=== PATIENT | female | born 1980 | race American Indian/Alaskan Native ===

== ENCOUNTER 2017-11-17 08:58 | Emergency (ER) | payer BC ==
[2017-11-17] MEDS ORDERED: SODIUM CHLORIDE 0.9% 1,000 ML IV STA (09:17)
[2017-11-17] MEDS ORDERED: ACETAMINOPHEN TAB 500 MG TAB PO STA (09:34)
--- NOTE | 2017-11-17 09:37 | ED ---
Syncope HPI - General Chief Complaint: Syncope Stated Complaint: Syncope, Back Pain Time Seen by Provider: 11/17/17 09:14 Source: patient, RN notes reviewed, old records reviewed Mode of arrival: ambulatory Limitations: no limitations - History of Present Illness Initial Comments: This patient's a 37-year-old female with chief complaint of syncopal episode today. Patient reports that she woke up this morning and woke up with lower back pain. Worse with position. Patient states she got up to use the bathroom , she started to feel dizzy and lightheaded at that time. She is the bathroom return to her kitchen. Patient states that she was making her coffee she fell to the ground and had a syncopal episode with loss of consciousness for a few minutes. She woke up on the ground. At that time she went to the shower to get ready and came here. Patient states that she continues to have some lower back pain, worse with position. She is a smoker. She denies any chest pain or shortness of breath. She does have history of migraines as well as her migraines been more frequent over the past 2 weeks. - Related Data Home Medications Medication Instructions Recorded Confirmed Ibuprofen [Motrin] 600 mg PO TID PRN 11/17/17 11/17/17 Nicotine 14Mg/24Hr Patch [Habitrol 1 patch TRANSDERM DAILY 11/17/17 11/17/17 14Mg/24Hr Patch] SUMAtriptan SUCCINATE [Imitrex] 100 mg PO DAILY PRN 11/17/17 11/17/17 Previous Rx's Medication Instructions Recorded Cyclobenzaprine [Flexeril] 10 mg PO TID #12 tab 11/17/17 Allergies Allergy/AdvReac Type Severity Reaction Status Date / Time No Known Allergies Allergy Verified 11/17/17 10:24 Review of Systems ROS Statement: Those systems with pertinent positive or pertinent negative responses have been documented in the HPI. ROS Other: All systems not noted in ROS Statement are negative. Past Medical History Past Medical History: No Reported History History of Any Multi-Drug Resistant Organisms: None Reported Past Surgical History: No Surgical Hx Reported Past Psychological History: No Psychological Hx Reported Smoking Status: Current every day smoker Past Alcohol Use History: None Reported Past Drug Use History: None Reported General Exam - General Exam Comments Initial Comments: This is a 37-year-old female. Alert and oriented. No significant distress. Limitations: no limitations General appearance: alert, in no apparent distress Head exam: Present: atraumatic, normocephalic, normal inspection Eye exam: Present: normal appearance, PERRL, EOMI. Absent: scleral icterus, conjunctival injection, periorbital swelling ENT exam: Present: normal exam, mucous membranes moist Neck exam: Present: normal inspection. Absent: tenderness, meningismus, lymphadenopathy Respiratory exam: Present: normal lung sounds bilaterally. Absent: respiratory distress, wheezes, rales, rhonchi, stridor Cardiovascular Exam: Present: regular rate, normal rhythm, normal heart sounds. Absent: systolic murmur, diastolic murmur, rubs, gallop, clicks GI/Abdominal exam: Present: soft, normal bowel sounds. Absent: distended, tenderness, guarding, rebound, rigid Extremities exam: Present: normal inspection Back exam: Present: normal inspection Neurological exam: Present: alert, oriented X3, CN II-XII intact Psychiatric exam: Present: normal affect, normal mood Skin exam: Present: warm, dry, intact, normal color. Absent: rash Course Vital Signs 11/17/17 11/17/17 09:05 11:38 Temperature 98.4 F Pulse Rate 83 54 L Respiratory 16 18 Rate Blood Pressure 120/76 113/68 O2 Sat by Pulse 99 98 Oximetry - Reevaluation(s) Reevaluation #1: 11/17/17 11:34 is reevaluated this time, she admitted to the bathroom. No evidence of gait disturbances. Patient has no abdominal pain or tenderness. Normal dorsalis pedis pulse. Patient informed of all of her results at this time. I will give her Patient medications for the lower back pain and Norflex and Toradol. Medical Decision Making - Medical Decision Making 37-year-old female presents by Department after single episode today. She reports she woke up today complaining of lower back pain after she woke up. Worse with movement. She has no abdominal tenderness or any pain at this time. She is no chest pain or shortness of breath. Patient reports she wanted to make her coffee G passed out was on the floor. At this time CT brain is a for acute process. Chest x-ray and lumbar spine x-ray reviewed and 8 for any abnormality's. Patient's lab work shows no changes on her EKG and lab work was all within normal limits. Patient given fluids, Toradol and Norflex for back pain. Patient is feeling much better at this time. I discussed etiologies for similar episodes, he also discussed the Patient could possibly do a CT abdomen and pelvis checking for aorta. However she has no abdominal tenderness, normal dorsalis pedis pulse bilaterally. Patient is agreeing to refuse at this time. I did discuss close follow-up with primary care physician. I discussed that she return if there is any worsening signs or symptoms occur. Patient discharged at this time with Flexeril to take ibuprofen for her back pain. Patient agrees to treatment plan will comply. Return parameters were discussed. - Lab Data Result diagrams: 11/17/17 09:24 11/17/17 09:24 Lab Results 11/17/17 11/17/17 11/17/17 Range/Units 09:24 09:24 09:24 WBC 9.7 (3.8-10.6) k/uL RBC 5.09 (3.80-5.40) m/uL Hgb 14.9 (11.4-16.0) gm/dL Hct 44.2 (34.0-46.0) % MCV 87.0 (80.0-100.0) fL MCH 29.3 (25.0-35.0) pg MCHC 33.7 (31.0-37.0) g/dL RDW 12.8 (11.5-15.5) % Plt Count 283 (150-450) k/uL Neutrophils % 76 % Lymphocytes % 18 % Monocytes % 4 % Eosinophils % 1 % Basophils % 1 % Neutrophils # 7.3 (1.3-7.7) k/uL Lymphocytes # 1.8 (1.0-4.8) k/uL Monocytes # 0.4 (0-1.0) k/uL Eosinophils # 0.1 (0-0.7) k/uL Basophils # 0.1 (0-0.2) k/uL PT (9.0-12.0) sec INR (<1.2) APTT (22.0-30.0) sec Sodium 140 (137-145) mmol/L Potassium 4.2 (3.5-5.1) mmol/L Chloride 109 H (98-107) mmol/L Carbon Dioxide 23 (22-30) mmol/L Anion Gap 8 mmol/L BUN 8 (7-17) mg/dL Creatinine 0.64 (0.52-1.04) mg/dL Est GFR (CKD-EPI)AfAm >90 (>60 ml/min/1.73 sqM) Est GFR (CKD-EPI)NonAf >90 (>60 ml/min/1.73 sqM) Glucose 86 (74-99) mg/dL Calcium 9.6 (8.4-10.2) mg/dL Magnesium 2.0 (1.6-2.3) mg/dL Total Bilirubin 0.4 (0.2-1.3) mg/dL AST 19 (14-36) U/L ALT 30 (9-52) U/L Alkaline Phosphatase 86 (38-126) U/L Total Creatine Kinase 61 (30-135) U/L CK-MB (CK-2) 0.4 (0.0-2.4) ng/mL CK-MB (CK-2) Rel Index 0.7 Troponin I <0.012 (0.000-0.034) ng/mL Total Protein 7.3 (6.3-8.2) g/dL Albumin 4.3 (3.5-5.0) g/dL Urine Color Urine Appearance (Clear) Urine pH (5.0-8.0) Ur Specific Kiefer (1.001-1.035) Urine Protein (Negative) Urine Glucose (UA) (Negative) Urine Ketones (Negative) Urine Blood (Negative) Urine Nitrite (Negative) Urine Bilirubin (Negative) Urine Urobilinogen (<2.0) mg/dL Ur Leukocyte Esterase (Negative) Urine HCG, Qual (Not Detectd) 11/17/17 11/17/17 11/17/17 Range/Units 09:24 09:24 09:24 WBC (3.8-10.6) k/uL RBC (3.80-5.40) m/uL Hgb (11.4-16.0) gm/dL Hct (34.0-46.0) % MCV (80.0-100.0) fL MCH (25.0-35.0) pg MCHC (31.0-37.0) g/dL RDW (11.5-15.5) % Plt Count (150-450) k/uL Neutrophils % % Lymphocytes % % Monocytes % % Eosinophils % % Basophils % % Neutrophils # (1.3-7.7) k/uL Lymphocytes # (1.0-4.8) k/uL Monocytes # (0-1.0) k/uL Eosinophils # (0-0.7) k/uL Basophils # (0-0.2) k/uL PT 9.7 (9.0-12.0) sec INR 1.0 (<1.2) APTT 24.5 (22.0-30.0) sec Sodium (137-145) mmol/L Potassium (3.5-5.1) mmol/L Chloride (98-107) mmol/L Carbon Dioxide (22-30) mmol/L Anion Gap mmol/L BUN (7-17) mg/dL Creatinine (0.52-1.04) mg/dL Est GFR (CKD-EPI)AfAm (>60 ml/min/1.73 sqM) Est GFR (CKD-EPI)NonAf (>60 ml/min/1.73 sqM) Glucose (74-99) mg/dL Calcium (8.4-10.2) mg/dL Magnesium (1.6-2.3) mg/dL Total Bilirubin (0.2-1.3) mg/dL AST (14-36) U/L ALT (9-52) U/L Alkaline Phosphatase (38-126) U/L Total Creatine Kinase (30-135) U/L CK-MB (CK-2) (0.0-2.4) ng/mL CK-MB (CK-2) Rel Index Troponin I (0.000-0.034) ng/mL Total Protein (6.3-8.2) g/dL Albumin (3.5-5.0) g/dL Urine Color Colorless Urine Appearance Clear (Clear) Urine pH 7.5 (5.0-8.0) Ur Specific Kiefer 1.001 (1.001-1.035) Urine Protein Negative (Negative) Urine Glucose (UA) Negative (Negative) Urine Ketones Negative (Negative) Urine Blood Negative (Negative) Urine Nitrite Negative (Negative) Urine Bilirubin Negative (Negative) Urine Urobilinogen <2.0 (<2.0) mg/dL Ur Leukocyte Esterase Negative (Negative) Urine HCG, Qual Not Detected (Not Detectd) 11/17/17 10:34 EKG performed at 9:19 AM. Normal sinus rhythm. Nonspecific T wave around. Abnormal EKG noted. - Radiology Data Radiology results: report reviewed Lumbar spine shows no fracture dislocation and lumbar spine. CT brain is negative for any acute process. Chest x-rays negative for any acute cardiopulmonary process. Disposition Clinical Impression: Lumbar back pain, Syncope Disposition: HOME SELF-CARE Condition: Good Instructions: Syncope (ED) Additional Instructions: Patient is to rest, remain hydrated. Follow-up with primary care physician tomorrow. Return to the emergency department if any alarming signs or symptoms occur. Prescriptions: Cyclobenzaprine [Flexeril] 10 mg PO TID #12 tab Is patient prescribed a controlled substance at d/c from ED?: No Referrals: Siddhartha Armstrong DO [Primary Care Provider] - 1-2 days Time of Disposition: 12:20
[2017-11-17 09:42] LABS: Basophils # (A) 0.1 k/uL (0-0.2); Basophils % (A) 1 %; Eosinophils # (A) 0.1 k/uL (0-0.7); Eosinophils % (A) 1 %; HCT 44.2 % (34.0-46.0); HGB 14.9 gm/dL (11.4-16.0); Lymphocytes # (A) 1.8 k/uL (1.0-4.8); Lymphocytes % (A) 18 %; MCH 29.3 pg (25.0-35.0); MCHC 33.7 g/dL (31.0-37.0); Monocytes # (A) 0.4 k/uL (0-1.0); Monocytes % (A) 4 %; Neutrophils # (A) 7.3 k/uL (1.3-7.7); Neutrophils % (A) 76 %; Platelet Count 283 k/uL (150-450); RBC 5.09 m/uL (3.80-5.40); RDW 12.8 % (11.5-15.5); WBC 9.7 k/uL (3.8-10.6)
[2017-11-17 09:47] LABS: Appearance,Urine Clear (Clear); Bilirubin,Urine Negative (Negative); Blood,Urine Negative (Negative); Color,Urine Colorless; Glucose,Urine (UA) Negative (Negative); Ketones,Urine Negative (Negative); Leukocyte Esterase,Urine Negative (Negative); Nitrite,Urine Negative (Negative); PH, Urine 7.5 (5.0-8.0); Protein,Urine Negative (Negative); Specific Gravity,Urine 1.001 (1.001-1.035); Urobilinogen,Urine <2.0 mg/dL (<2.0)
[2017-11-17 09:52] LABS: Partial Thromboplastin Time 24.5 sec (22.0-30.0); Prothrombin Time 9.7 sec (9.0-12.0)
[2017-11-17 09:54] LABS: ALT 30 U/L (9-52); AST 19 U/L (14-36); Albumin 4.3 g/dL (3.5-5.0); Alkaline Phosphatase 86 U/L (38-126); Anion Gap 8 mmol/L; Blood Urea Nitrogen 8 mg/dL (7-17); Calcium 9.6 mg/dL (8.4-10.2); Carbon Dioxide 23 mmol/L (22-30); Chloride 109 mmol/L (98-107); Glucose 86 mg/dL (74-99); Potassium 4.2 mmol/L (3.5-5.1); Sodium 140 mmol/L (137-145); Total Bilirubin 0.4 mg/dL (0.2-1.3); Total Protein 7.3 g/dL (6.3-8.2)
--- NOTE | 2017-11-17 10:16 | CT ---
EXAMINATION TYPE: CT brain wo con DATE OF EXAM: 11/17/2017 COMPARISON: November 29, 2014 HISTORY: Syncope, back pain CT DLP: 1017.[address] of the brain was performed. The ventricles, basal cisterns and sulci overlying the cerebral convexities demonstrate a normal appe arance. There is no evidence for intracranial hemorrhage or sulcal effacement. No mass effects are seen. Osseous calvarium is intact. If symptoms persist consider MRI as clinically warranted. IMPRESSION: 1. No acute intracranial process is seen at this time.
--- NOTE | 2017-11-17 10:20 | XR ---
EXAMINATION TYPE: XR chest 2V DATE OF EXAM: 11/17/2017 COMPARISON: NONE HISTORY: Chest pain TECHNIQUE: Frontal and lateral views of the chest are obtained. FINDINGS: There is no focal air space opacity. No evidence for pneumothorax. No pleural effusion. The cardiac silhouette size is within normal limits. The osseous structures are grossly intact. IMPRESSION: 1. No acute cardiopulmonary process.
[2017-11-17 10:22] LABS: Creatine Kinase 61 U/L (30-135)
--- NOTE | 2017-11-17 10:22 | XR ---
EXAMINATION TYPE: XR lumbar spine 2 or 3V DATE OF EXAM: 11/17/2017 CLINICAL HISTORY: pain TECHNIQUE: Three views of the lumbar spine are submitted. COMPARISON: None. FINDINGS: There are 5 lumbar type vertebral bodies identified. The lumbar spine shows satisfactory alignment w ithout evidence of acute fracture or dislocation. Vertebral body heights are within normal limits. Disc spaces are within normal limits. The overlying soft tissue appears unremarkable. IMPRESSION: No acute fracture or dislocation is seen in the lumbar spine. ICD 10 NO FRACTURE, INITIAL EVALUATION
[2017-11-17 10:35] LABS: Creatine Kinase MB 0.4 ng/mL (0.0-2.4); Troponin I <0.012 ng/mL (0.000-0.034)
[2017-11-17] MEDS ORDERED: KETOROLAC 30 MG/ML 1 ML VIAL IVP STA (11:20)
[2017-11-17] MEDS ORDERED: ORPHENADRINE 30 MG/ML 2 ML VIAL IVP STA (11:20)
[2017-11-17 13:00] VITALS: BP 128/74; PULSE 79; RESP 16; TEMP 98.7
== END 2017-11-17 12:59 | disposition home or self-care (01) ==
LOC: EC 08:58
DX: M54.5 Low back pain (principal); R55 Syncope and collapse; F17.200 Nicotine dependence, unspecified, uncomplicated; Z79.899 Other long term (current) drug therapy; Z53.29 Procedure and treatment not carried out because of patient's decision for other reasons
CPT/HCPCS: 36415; 93005; 80053; 82550; 82553; 83735; 84484; 85025; 85610; 85730; 81003; 81025; 72100; 71046; 70450; 99285; 96374; 96375; 96361 ×4; J2360; J1885

== ENCOUNTER → 2017-11-24 | Outpatient (CLI) | payer BC ==
[2017-11-24 15:16] VITALS: BP 109/58; PULSE 84; BMI 29.7
--- NOTE | 2017-11-24 15:36 | P.GSHP ---
History of Present Illness H&P Date: 11/24/17 The patient is a 37-year-old who presents for breast examination. She does not feel any masses lumps or nodules in her breast. She is just concerned that she may not be doing breast examination appropriately and wishes to have an examination performed. She did have a mammogram in 2016 which was felt to be benign and repeat mammogram at the age of 38 was recommended at that time. The patient states that just before she starts her periods that time she will have discomfort in her breast. The patient drinks approximately one to 2 cups of coffee per day which is dramatically improved from 8 over a pot of coffee a day. Additionally she does not eat much chocolate. She smokes 1-2 cigarettes per day. 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 uterine ablation Past Medical History: 1. fainting episode last week, uncertain as to why Social History: smoke: 1-2 cigarettes/day alcohol: none drugs: none - Constitutional Constitutional: Reports sweats - EENT Eyes: denies blurred vision, denies pain Ears: deny: decreased hearing, tinnitus Ears, nose, mouth and throat: Reports headache, Denies sore throat - Breasts Breasts: bilateral: as per HPI - Cardiovascular Cardiovascular: Denies chest pain, Denies shortness of breath - Respiratory Comment: smoker Respiratory: Denies cough, Denies 7 - Gastrointestinal Gastrointestinal: Denies abdominal pain, Denies diarrhea, Denies nausea, Denies vomiting - Genitourinary (Female) Genitourinary: Reports abnormal vaginal bleeding - Musculoskeletal Musculoskeletal: Denies myalgias - Integumentary Integumentary: Denies pruritus, Denies rash - Neurological Neurological: Denies numbness, Denies weakness - Psychiatric Psychiatric: Denies anxiety, Denies depression - Endocrine Endocrine: Reports weight change, Denies fatigue - Hematologic/Lymphatic Comment: none - Allergic/Immunologic Comment: none Past Medical History Past Medical History: No Reported History History of Any Multi-Drug Resistant Organisms: None Reported Past Surgical History: No Surgical Hx Reported, Breast Surgery Additional Past Surgical History / Comment(s): breast biopsy Past Anesthesia/Blood Transfusion Reactions: No Reported Reaction Past Psychological History: No Psychological Hx Reported Smoking Status: Current every day smoker Past Alcohol Use History: None Reported Past Drug Use History: None Reported - Past Family History Mother Family Medical History: No Reported History Father Family Medical History: Cancer Additional Family Medical History / Comment(s): stomach cancer ( when Susannah was a child) Medications and Allergies Home Medications Medication Instructions Recorded Confirmed Type Cyclobenzaprine [Flexeril] 10 mg PO TID #12 tab 11/17/17 Rx Ibuprofen [Motrin] 600 mg PO TID PRN 11/17/17 11/17/17 History Nicotine 14Mg/24Hr Patch [Habitrol 1 patch TRANSDERM DAILY 11/17/17 11/17/17 History 14Mg/24Hr Patch] SUMAtriptan SUCCINATE [Imitrex] 100 mg PO DAILY PRN 11/17/17 11/17/17 History Allergies Allergy/AdvReac Type Severity Reaction Status Date / Time No Known Allergies Allergy Verified 11/17/17 10:24 Surgical - Exam Vital Signs Pulse BP Pulse Ox 84 109/58 98 11/24/17 15:11 11/24/17 15:11 11/24/17 15:11 - General well developed, well nourished, no distress - Eyes normal ocular movement, no icteric - ENT no hearing loss, no congestion - Neck no masses, trachea midline - Respiratory normal respiratory effort, clear to auscultation - Cardiovascular Rhythm: regular Heart Sounds: normal: S1, S2 - Abdomen Abdomen: soft, non tender, no guarding, no rigid, no rebound - Neurologic no disoriented, no combative - Musculoskeletal normal gait, normal posture - Psychiatric oriented to time, oriented to person, oriented to place, speech is normal, memory intact Breast examination: Right breast: Multiple positional exam no dominant masses or nodules of concern , fibrocystic changes Right axilla: No adenopathy of concern Left breast: Multi-positional exam no dominant masses or nodules of concern, fibrocystic changes Left axilla: No adenopathy of concern Assessment and Plan Assessment: Impression: 1. fibrocystic breast changes no dominant masses or nodules of concern 2. Irregular uterine bleeding following with preschool assistant principal 3. Migraines Plan: 1. Bilateral breast mammogram at the age of 38 which will be July 2019 819 2. Follow-up after bilateral mammogram 3. Continue to follow with Dr. Smith 4. Continue to follow with Dr. Armstrong regarding medical care/ migraines We have discussed caffeine intake with respect to fibrocystic breast changes. The patient understands and will decide if she wishes to decrease further her coffee intake. Cc: Dr. Armstrong, Dr. Smith
== END ==
LOC: WWCWWP 14:43
PROVIDERS: ATTEND Surgery
DX: Z53.9 Procedure and treatment not carried out, unspecified reason (principal)

== ENCOUNTER → 2017-12-08 | Outpatient (CLI) | payer BC ==
--- NOTE | 2017-12-09 11:23 | ECHOF ---
Referral Reason:R55 Syncope MEASUREMENTS -------- HEIGHT: 170.2 cm WEIGHT: 86.2 kg BP: 129/68 RVIDd: 3.0 cm (< 3.3) IVSd: 1.1 cm (0.6 - 1.1) LVIDd: 4.9 cm (3.9 - 5.3) LVPWd: 1.2 cm (0.6 - 1.1) IVSs: 1.5 cm LVIDs: 3.5 cm LVPWs: 1.7 cm LA Diam: 3.7 cm (2.7 - 3.8) LAESV Index (A-L): 21.85 ml/m Ao Diam: 3.0 cm (2.0 - 3.7) AV Cusp: 2.2 cm (1.5 - 2.6) MV EXCURSION: 12.690 mm (> 18.000) MV EF SLOPE: 96 mm/s (70 - 150) EPSS: 1.0 cm MV E Chicho: 0.87 m/s MV DecT: 181 ms MV A Chicho: 0.53 m/s MV E/A Ratio: 1.65 RAP: 5.00 mmHg RVSP: 25.25 mmHg FINDINGS -------- Sinus rhythm. This was a technically good study. The left ventricular size is normal. There is borderline concentric left ventricular hypertrophy. Overall left ventricular systolic function is normal with, an EF between 60 - 65 %. The right ventricle is normal in size. Normal LA size by volume 22+/-6 ml/m2. The right atrium is normal in size. The aortic valve is trileaflet and appears structurally normal. The mitral valve is normal. Mild tricuspid regurgitation present. Right ventricular systolic pressure is normal at < 35 mmHg. There is no pulmonic regurgitation present. The aortic root size is normal. Normal inferior vena cava with normal inspiratory collapse consistent with estimated right atrial pre ssure of 5 mmHg. There is no pericardial effusion. CONCLUSIONS -------- 1. Sinus rhythm. 2. This was a technically good study. 3. The left ventricular size is normal. 4. There is borderline concentric left ventricular hypertrophy. 5. Overall left ventricular systolic function is normal with, an EF between 60 - 65 %. 6. The right ventricle is normal in size. 7. Normal LA size by volume 22+/-6 ml/m2. 8. The right atrium is normal in size. 9. The aortic valve is trileaflet and appears structurally normal. 10. The mitral valve is normal. 11. Mild tricuspid regurgitation present. 12. Right ventricular systolic pressure is normal at < 35 mmHg. 13. There is no pulmonic regurgitation present. 14. The aortic root size is normal. 15. Normal inferior vena cava with normal inspiratory collapse consistent with estimated right atrial pressure of 5 mmHg. 16. There is no pericardial effusion. [employer]: Kathleen Womack RDCS
== END | disposition home or self-care (01) ==
LOC: RADECHMAIN 16:36
PROVIDERS: ATTEND Family Medicine
DX: I07.1 Rheumatic tricuspid insufficiency (principal); I38 Endocarditis, valve unspecified
CPT/HCPCS: 93306

== ENCOUNTER → 2018-05-15 | Outpatient (CLI) | payer BC ==
--- NOTE | 2018-05-15 11:37 | EST ---
EXERCISE STRESS AGE: 37 SEX: F HT: 5'6" WT: 183 PROTOCOL: Exercise Stress Test STAGE: II DURATION OF EXERCISE: 8:35 HEART RATE REST: 67 BLOOD PRESSURE REST: 101/70 MAXIMUM HEART RATE ACHIEVED: 149 MAXIMUM BLOOD PRESSURE: 129/61 85% MPHR: 154 100% MPHR: 181 METS: 10.1 INDICATIONS: Passed out 6 months ago. CLINICAL INFORMATION: Baseline EKG shows sinus rhythm, normal axis, normal intervals. Patient exercised on Julian protocol for a total of 8.5 minutes achieving 10 METS, 87% of predicted maximal heart rate without chest pain or diagnostic ST-segment depression. CONCLUSION: 1. Above-average exercise tolerance. 2. Negative stress test by EKG criteria. MMODL / IJN: [id number] /
== END ==
LOC: RADNMMAIN 08:59
PROVIDERS: ATTEND Family Medicine
DX: R55 Syncope and collapse (principal)
CPT/HCPCS: 93017

== ENCOUNTER → 2019-03-23 | Outpatient (CLI) | payer BC ==
--- NOTE | 2019-03-30 09:49 | MM ---
Reason for exam: screening (asymptomatic). Last mammogram was performed 3 years and 9 months ago. History: Benign US biopsy breast VAD LT of the left breast, October 11, 2013. Physical Findings: A clinical breast exam by your physician is recommended on an annual basis and results should be correlated with mammographic findings. MG Screening Mammo w CAD Bilateral CC and MLO view(s) were taken. Prior study comparison: June 09, 2015, bilateral MG 3d diag mammo w/cad RENE. September 26, 2013, bilateral MG diagnostic mammo w CAD RENE. The breast tissue is heterogeneously dense. This may lower the sensitivity of mammography. Previous mammotome biopsy in the left breast. Inferior subareolar nodularity on the right measures 1.1cm, gradually enlarging. ASSESSMENT: Incomplete: need additional imaging evaluation, BI-RAD 0 RECOMMENDATION: Special view mammogram of the right breast. (3D) If lesion persists on supplemental views, image directed ultrasound is recommended. [facility] will attempt to contact patient to return for supplemental views and ultrasound if indicated.
== END | disposition home or self-care (01) ==
LOC: RADMAMWWP 16:12
PROVIDERS: ATTEND Obstetrics & Gynecology
DX: Z12.31 Encounter for screening mammogram for malignant neoplasm of breast (principal)
CPT/HCPCS: 77067

== ENCOUNTER → 2020-03-31 | Outpatient (CLI) | payer BC | END | disposition home or self-care (01) | LOC: LABWHC1 12:30 | PROVIDERS: ATTEND Emergency Medicine | DX: Z20.828 Contact with and (suspected) exposure to other viral communicable diseases (principal) | CPT/HCPCS: U0003; C9803 ==

== ENCOUNTER → 2020-05-02 | Outpatient (CLI) | payer BC ==
--- NOTE | 2020-05-05 09:27 | MM ---
Reason for exam: additional evaluation requested from prior study. Last mammogram was performed 1 year and 1 month ago. History: Benign US biopsy breast VAD LT of the left breast, October 11, 2013. Physical Findings: Nurse did not find any significant physical abnormalities on exam. MG 3D Diag Mammo W/Cad RENE Bilateral CC and MLO view(s) were taken. Prior study comparison: April 12, 2019, right breast MG 3d work up w/cad RT. March 23, 2019, bilateral MG screening mammo w CAD. The breast tissue is heterogeneously dense. This may lower the sensitivity of mammography. There is no discrete abnormality including area of concern. These results were verbally communicated with the patient and result sheet given to the patient on 05/02/20. ASSESSMENT: Incomplete: need additional imaging evaluation, BI-RAD 0 RECOMMENDATION: Ultrasound of the right breast.
--- NOTE | 2020-05-05 09:32 | USB ---
Reason for exam: additional evaluation requested from abnormal screening. History: Benign US biopsy breast VAD LT of the left breast, October 11, 2013. US Breast Limited RT Right limited breast ultrasound including focal area of concern, retroareolar and axilla demonstrates a 4 x 4 x 4mm oval, cystic lesion at 4 o'clock and a 4 x 3 x 6mm lobular, cystic lesion at 4 o'clock. These results were verbally communicated with the patient and result sheet given to the patient on 05/02/20. ASSESSMENT: Benign, BI-RAD 2 RECOMMENDATION: Routine screening mammogram of both breasts in 1 year.
== END | disposition home or self-care (01) ==
LOC: RADMAMWWP 13:22
PROVIDERS: ATTEND Family Medicine
DX: N64.9 Disorder of breast, unspecified (principal); R92.8 Other abnormal and inconclusive findings on diagnostic imaging of breast
CPT/HCPCS: 77062; 77066

== ENCOUNTER → 2020-06-03 | Outpatient (CLI) | payer BC | END | disposition home or self-care (01) | LOC: LABWHC1 16:41 | PROVIDERS: ATTEND Emergency Medicine | DX: Z20.822 Contact with and (suspected) exposure to COVID-19 (principal) | CPT/HCPCS: U0003; C9803; U0005 ==

== ENCOUNTER → 2021-07-13 | Outpatient (CLI) | payer BC ==
--- NOTE | 2021-07-15 12:04 | MM ---
Reason for exam: screening (asymptomatic). Last mammogram was performed 1 year and 2 months ago. History: Benign US biopsy breast VAD LT of the left breast, October 11, 2013. Physical Findings: A clinical breast exam by your physician is recommended on an annual basis and results should be correlated with mammographic findings. MG Screening Mammo w CAD Bilateral CC and MLO view(s) were taken. Prior study comparison: May 02, 2020, bilateral MG 3d diag mammo w/cad RENE. April 12, 2019, right breast MG 3d work up w/cad RT. April 12, 2019, right breast US breast workup limited RT. March 23, 2019, bilateral MG screening mammo w CAD. June 09, 2015, bilateral MG 3d diag mammo w/cad RENE. The breast tissue is heterogeneously dense. This may lower the sensitivity of mammography. Previous mammotome biopsy in the left breast. There is chronic nodularity in the left breast. No significant changes when compared with prior studies. ASSESSMENT: Benign, BI-RAD 2 RECOMMENDATION: Routine screening mammogram of both breasts in 1 year.
== END | disposition home or self-care (01) ==
LOC: RADMAMWWP 16:14
PROVIDERS: ATTEND Obstetrics & Gynecology
DX: Z12.31 Encounter for screening mammogram for malignant neoplasm of breast (principal)
CPT/HCPCS: 77067

== ENCOUNTER → 2022-04-08 | Outpatient (CLI) | payer BC ==
--- NOTE | 2022-04-08 16:46 | XR ---
EXAMINATION TYPE: XR chest 2V DATE OF EXAM: 04/08/2022 4:40 PM COMPARISON: Chest radiographs from 11/17/2017. TECHNIQUE: XR chest 2V Frontal and lateral views of the chest. CLINICAL INDICATION:Female, 41 years old with history of R04.2 Hemoptysis; FINDINGS: Lungs/Pleura: There is no evidence of pleural effusion, focal consolidation, or pneumothorax. Pulmonary vascularity: Unremarkable. Heart/mediastinum: Cardiomediastinal silhouette is unremarkable. Musculoskeletal: No acute osseous pathology. IMPRESSION: No acute cardiopulmonary disease/process. No significant change from prior examination.
== END | disposition home or self-care (01) ==
LOC: RADXRMAIN 16:31
PROVIDERS: ATTEND Family Medicine
DX: R04.2 Hemoptysis (principal)
CPT/HCPCS: 71046

== ENCOUNTER → 2022-08-16 | Outpatient (CLI) | payer OTHER ==
--- NOTE | 2022-08-16 17:18 | XR ---
EXAMINATION TYPE: XR tibia fibula RT, XR foot complete RT, XR ankle complete RT DATE OF EXAM: 08/16/2022 CLINICAL HISTORY: Injury with pain TECHNIQUE: Two views of the right leg are obtained. 3 views right ankle and foot. COMPARISON: None. FINDINGS: There is no acute fracture or dislocation seen in the right tibia or fibula. The right knee joint appears within normal limits.. The overlying soft tissue appears unremarkable. Images of the right ankle show no acute fracture or dislocation. Ankle mortise symmetry is preserved. Mild diffuse subcutaneous edema is seen. Images of right foot show no acute displaced fracture. Joint spaces are maintained. Overlying soft ti ssue is preserved. IMPRESSION: There is no acute fracture or dislocation seen in the right leg, ankle, or foot.
== END | disposition home or self-care (01) ==
LOC: RADXRMAIN 16:51
PROVIDERS: ATTEND Emergency Medicine
DX: S80.11XA Contusion of right lower leg, initial encounter (principal)

== ENCOUNTER → 2022-08-17 | Outpatient (CLI) | payer OTHER ==
--- NOTE | 2022-08-17 11:47 | US ---
EXAMINATION TYPE: US venous doppler duplex LE RT DATE OF EXAM: 08/17/2022 11:38 AM COMPARISON: NONE CLINICAL INDICATION: Female, 42 years old with history of RLE; S80.11XA; SIDE PERFORMED: Right TECHNIQUE: The lower extremity deep venous system is examined utilizing real time linear array sonog mahin with graded compression, doppler sonography and color-flow sonography. VESSELS IMAGED: Common Femoral Vein Deep Femoral Vein Greater Saphenous Vein * Femoral Vein Popliteal Vein Small Saphenous Vein * Proximal Calf Veins Posterior tibial veins (* superficial vessels) Right Leg: Negative for DVT Barrel Rifler notes: Scanning was performed over contusion, right lower leg, no definite abnormality no luisa. IMPRESSION: 1. No sonographic evidence for DVT within the right lower extremity. 2. Additional targeted scanning along the anterior aspect of the lower leg corresponding to the site of patient's injury. No discrete soft tissue abnormality is identified by ultrasound.
== END | disposition home or self-care (01) ==
LOC: RADUSWWP 11:17
PROVIDERS: ATTEND Emergency Medicine
DX: S80.11XA Contusion of right lower leg, initial encounter (principal)

== ENCOUNTER → 2022-08-24 | Outpatient (CLI) | payer OTHER ==
--- NOTE | 2022-08-24 12:06 | XR ---
EXAMINATION TYPE: XR ankle complete RT, XR foot complete RT DATE OF EXAM: 08/24/2022 CLINICAL HISTORY: S90.11XA S90.32XD Contusion right foot recent injury with persistent pain TECHNIQUE: Frontal, lateral and oblique images of the right ankle and foot are obtained. COMPARISON: Right ankle x-ray 8 days ago. FINDINGS: There is no acute fracture/dislocation evident in the right ankle. The ankle mortise appe ars within normal limits. The overlying soft tissue appears unremarkable. There is no acute fracture or dislocation evident in the right foot. The joint spaces in the right f oot are preserved. Overlying soft tissue is unremarkable. IMPRESSION: There is no acute fracture or dislocation in the right ankle or foot. No significant tabatha nge from prior.
== END | disposition home or self-care (01) ==
LOC: RADXRMAIN 11:22
PROVIDERS: ATTEND Emergency Medicine
DX: S90.31XD Contusion of right foot, subsequent encounter (principal); S80.11XD Contusion of right lower leg, subsequent encounter; S90.01XD Contusion of right ankle, subsequent encounter; X58.XXXD Exposure to other specified factors, subsequent encounter

== ENCOUNTER → 2022-09-07 | Outpatient (CLI) | payer OTHER ==
--- NOTE | 2022-09-09 09:13 | MR ---
EXAMINATION TYPE: MR ankle RT wo con, MR foot RT wo con DATE OF EXAM: 09/07/2022 COMPARISON: Prior right foot and ankle x-rays August 24, 2022 HISTORY: Right foot/ankle pain due to object falling on foot at work. Standard multiplanar, multisequence MRI departmental protocol Multiplanar, multisequence images of the right ankle and foot were acquired without contrast. FINDINGS: Distal Achilles tendon intact. Visualized plantar fascia appears within normal limits. There is subchondral cystic change in the central calcaneus sagittal image 20. There is mild edema an d subchondral cystic change in the anterior to middle portion of the talus sagittal image 16. Ankle m ortise symmetry is preserved. Mild narrowing in the mid foot joints without suspicious edema or signi ficant spurring. The peroneal tendons are intact. The flexor tendons are intact. Some fluid surrounds the PT tendon at level of the talus. Extensor tendons anteriorly are intact. Anterior tibiofibular ligament is intact. Anterior talofibular ligament is intact axial image 26. Pos terior syndesmosis is maintained. Medial deltoid ligament is intact. There is loss of normal sinus tarsi fat noted. Lisfranc joints are maintained. No suspicious edema in the metatarsals is present. Slight flexion in the toes. No suspicious increased T2 signal or edema. There is focal mild to moderate subcutaneous edema along the lateral aspect of the and hindfoot and m idfoot. There is also mild/moderate subcutaneous edema along the medial aspect of the and hindfoot. IMPRESSION: 1. 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 2. Mild borderline moderate degenerative changes in the hindfoot and midfoot structures. [id number]-ft-[id number] rate diffuse subcutaneous edema is seen. There is PT tenosynovitis. No tendon or ligamentous tear is identified.
== END | disposition home or self-care (01) ==
LOC: RADMRIMAIN 20:00
PROVIDERS: ATTEND Emergency Medicine
DX: S90.01XD Contusion of right ankle, subsequent encounter (principal); S90.31XD Contusion of right foot, subsequent encounter; M19.071 Primary osteoarthritis, right ankle and foot; R60.0 Localized edema

== ENCOUNTER → 2023-04-25 | Outpatient (CLI) | payer BC ==
--- NOTE | 2023-04-27 20:51 | MM ---
Reason for Exam: Screening (asymptomatic). Last mammogram was performed 1 year(s) and 9 month(s) ago. Patient History: Menarche at age 6. First Full-Term at age 14. 10/11/2013, Benign Core Biopsy on the left side. Risk Values: Nabila 5 year model risk: 1.0%. NCI Lifetime model risk: 9.4%. Prior Study Comparison: 04/12/2019 Right Diagnostic Mammogram, [facility]. 05/02/2020 Bilateral Diagnostic Mammogram, [facility]. 07/13/2021 Bilateral Screening Mammogram, [facility]. Tissue Density: The breast tissue is heterogeneously dense. This may lower the sensitivity of mammography. Findings: Analyzed By CAD. There is no suspicious group of microcalcifications or new suspicious mass in either breast. Overall Assessment: Negative, BI-RAD 1 Management: Screening Mammogram of both breasts in 1 year. . Patient should continue monthly self-breast exams. A clinical breast exam by your physician is recommended on an annual basis. This exam should not preclude additional follow-up of suspicious palpable abnormalities. Note on Nabila scores and lifetime risk: 1. A Nabila score greater than 3% is considered moderate risk. If this is the case, consider specialist referral to assess eligibility for a risk reducing agent. 2. If overall lifetime risk for the development of breast cancer is 20% or higher, the patient may qualify for future screening with alternating mammogram and breast MRI. Electronically signed and approved by: Everett Spencer M.D. Radiologist
== END | disposition home or self-care (01) ==
LOC: RADMAMWWP 16:56
PROVIDERS: ATTEND Family Medicine
DX: Z12.31 Encounter for screening mammogram for malignant neoplasm of breast (principal)
CPT/HCPCS: 77063; 77067